=== PATIENT | female | born 1985 | race Caucasian/White ===

== ENCOUNTER → 2019-12-29 16:20 | Outpatient (CLI) | payer OTHER, SELFPAY ==
[2019-12-30 14:43] LABS: COVID19 Sendout Not Detected (Not Detect)
== END ==
PROVIDERS: Visit Provider Registered Nurse
DX: Z11.59 Encounter for screening for other viral diseases (principal); Z01.812 Encounter for preprocedural laboratory examination
CPT/HCPCS: 87635